=== PATIENT | male | born 1970 | race Caucasian/White ===

== ENCOUNTER → 2023-08-10 14:48 | Outpatient (REF) | payer OTHER, SELFPAY | LOC: DHCBC HW 14:48 | PROVIDERS: ATTENDING PHYSICIAN Internal Medicine Cardiovascular Disease; FAMILY PHYSICIAN Internal Medicine | DX: I10 Essential (primary) hypertension (principal); R94.31 Abnormal electrocardiogram [ECG] [EKG] | CPT/HCPCS: 93306 ==